=== PATIENT | female | born 1930 | race Two or more races ===

== ENCOUNTER → 2018-11-23 | Outpatient (CLI) | payer OTHER ==
[~2018-11-23] MED LIST: AMLODIPINE BESYL5 MG; CATAFLAM50 MG PO; CRESTOR5 MG; DIOVAN HCT 160-1 TA1; TUSSIONEX PENN115 ML PO; VOLTAREN100 GM TP; ZITHROMAX500 MG PO
== END | disposition home or self-care (01) ==
LOC: SONOGRAMA 10:33
DX: E04.1 Nontoxic single thyroid nodule (principal)

== ENCOUNTER 2020-05-13 13:18 | Emergency (ER) | payer OTHER ==
[~2020-05-13] VITALS: Ht 149.9 cm; Wt 57.2 kg
== END 2020-05-14 09:14 | disposition home or self-care (01) ==
LOC: ER 13:18
DX: E04.2 Nontoxic multinodular goiter (principal); R42 Dizziness and giddiness

== ENCOUNTER 2020-06-05 08:15 | Outpatient (CLI) | payer OTHER | END 2020-06-05 08:26 | disposition home or self-care (01) | LOC: NUCLEAR 08:15 | PROVIDERS: ATTEND Internal Medicine Endocrinology, Diabetes & Metabolism | DX: M81.0 Age-related osteoporosis without current pathological fracture (principal); Z13.820 Encounter for screening for osteoporosis; M85.89 Other specified disorders of bone density and structure, multiple sites ==

== ENCOUNTER 2020-06-12 09:30 | Outpatient (CLI) | payer OTHER | END 2020-06-12 10:30 | disposition home or self-care (01) | LOC: SONOGRAMA 09:30 | PROVIDERS: ATTEND Pathology Anatomic Pathology & Clinical Pathology | DX: E04.2 Nontoxic multinodular goiter (principal) ==

== ENCOUNTER → 2020-10-09 | Emergency (ER) | payer OTHER ==
[~2020-10-09] VITALS: Ht 149.9 cm; Wt 59.0 kg
[~2020-10-09] MED LIST changes: +ATACAND16 MG PO
== END | disposition home or self-care (01) ==
LOC: ER 09:20
DX: R53.81 Other malaise (principal); M54.89 Other dorsalgia; Z11.52 Encounter for screening for COVID-19

== ENCOUNTER 2021-06-28 09:47 | Emergency (ER) | payer OTHER ==
[~2021-06-28] VITALS: Ht 149.9 cm; Wt 57.2 kg
== END 2021-06-28 15:21 | disposition home or self-care (01) ==
LOC: ER 09:47
DX: K59.09 Other constipation (principal); I10 Essential (primary) hypertension

== ENCOUNTER 2021-08-30 11:43 | Outpatient (CLI) | payer OTHER | END 2021-08-30 11:44 | disposition home or self-care (01) | LOC: NUCLEAR 11:43 | PROVIDERS: ATTEND Internal Medicine Endocrinology, Diabetes & Metabolism | DX: M85.89 Other specified disorders of bone density and structure, multiple sites (principal); Z13.820 Encounter for screening for osteoporosis ==

== ENCOUNTER 2021-10-01 14:42 | Emergency (ER) | payer OTHER ==
[~2021-10-01] VITALS: Ht 149.9 cm; Wt 55.3 kg
[2021-10-01] MEDS ORDERED: AMLODIPINE BESY10 MG PO (15:34)
[2021-10-01] MEDS ORDERED: PANTOPRAZOLE SO40 MG PO (15:34)
[2021-10-01] MEDS ORDERED: CANDESARTAN CIL32 MG PO (15:34)
[2021-10-01] MEDS ORDERED: ROSUVASTATIN CA10 MG PO (15:35)
[2021-10-01] MEDS ORDERED: TRAMADOL HCL50 MG PO (20:58)
== END 2021-10-01 21:17 | disposition home or self-care (01) ==
LOC: ER 14:42
DX: S40.011A Contusion of right shoulder, initial encounter (principal); S70.01XA Contusion of right hip, initial encounter; W18.30XA Fall on same level, unspecified, initial encounter; Y93.9 Activity, unspecified; Y92.89 Other specified places as the place of occurrence of the external cause; Y99.9 Unspecified external cause status; I10 Essential (primary) hypertension

== ENCOUNTER 2021-11-07 13:07 | Emergency (ER) | payer OTHER ==
[~2021-11-07] VITALS: Ht 149.9 cm; Wt 56.2 kg
[~2021-11-07 13:07] MED LIST changes: +AMLODIPINE BESY10 MG PO; +CANDESARTAN CIL32 MG PO; +PANTOPRAZOLE SO40 MG PO; +ROSUVASTATIN CA10 MG PO; +TRAMADOL HCL50 MG PO
[2021-11-07] MEDS ORDERED: MIRALAX17 GM PO (16:33)
== END 2021-11-07 17:28 | disposition home or self-care (01) ==
LOC: ER 13:07
DX: K59.00 Constipation, unspecified (principal); I10 Essential (primary) hypertension

== ENCOUNTER 2021-11-29 10:39 | Outpatient (CLI) | payer OTHER ==
[~2021-11-29 10:39] MED LIST changes: +MIRALAX17 GM PO
== END 2021-11-29 10:47 | disposition home or self-care (01) ==
LOC: RAD 10:39
PROVIDERS: ATTEND Internal Medicine Endocrinology, Diabetes & Metabolism
DX: M81.0 Age-related osteoporosis without current pathological fracture (principal)

== ENCOUNTER 2021-11-30 08:25 | Outpatient (CLI) | payer OTHER | END 2021-11-30 08:30 | disposition home or self-care (01) | LOC: LAB 08:25 | PROVIDERS: ATTEND Internal Medicine Endocrinology, Diabetes & Metabolism | DX: E03.9 Hypothyroidism, unspecified (principal); D35.2 Benign neoplasm of pituitary gland; E11.65 Type 2 diabetes mellitus with hyperglycemia; E28.2 Polycystic ovarian syndrome; E27.49 Other adrenocortical insufficiency; L68.0 Hirsutism; C73 Malignant neoplasm of thyroid gland; N39.0 Urinary tract infection, site not specified; E22.1 Hyperprolactinemia; M81.0 Age-related osteoporosis without current pathological fracture ==

== ENCOUNTER → 2022-07-23 08:27 | Outpatient (CLI) | payer OTHER | END | disposition home or self-care (01) | LOC: LAB 08:27 | PROVIDERS: ATTEND Internal Medicine Endocrinology, Diabetes & Metabolism | DX: M81.0 Age-related osteoporosis without current pathological fracture (principal); E83.51 Hypocalcemia ==

== ENCOUNTER 2022-07-23 11:05 | Outpatient (CLI) | payer OTHER | END 2022-07-23 11:11 | disposition home or self-care (01) | LOC: SONOGRAMA 11:05 | PROVIDERS: ATTEND Internal Medicine Endocrinology, Diabetes & Metabolism | DX: E04.2 Nontoxic multinodular goiter (principal) ==

== ENCOUNTER → 2022-08-06 08:46 | Outpatient (CLI) | payer OTHER | END | disposition home or self-care (01) | LOC: NUCLEAR 08:46 | PROVIDERS: ATTEND Internal Medicine Cardiovascular Disease | DX: I10 Essential (primary) hypertension (principal) ==

== ENCOUNTER 2022-10-25 07:28 | Outpatient (CLI) | payer OTHER | END 2022-10-25 07:29 | disposition home or self-care (01) | LOC: NUCLEAR 07:28 | PROVIDERS: ATTEND Internal Medicine | DX: I25.118 Atherosclerotic heart disease of native coronary artery with other forms of angina pectoris (principal); I11.9 Hypertensive heart disease without heart failure | CPT/HCPCS: 78452; 93017; A9500; J0153 ==

== ENCOUNTER 2022-10-31 14:57 | Emergency (ER) | payer OTHER ==
[~2022-10-31] VITALS: Ht 152.4 cm; Wt 55.8 kg
== END 2022-10-31 17:55 | disposition home or self-care (01) ==
LOC: ER 14:57
DX: I16.9 Hypertensive crisis, unspecified (principal); I10 Essential (primary) hypertension